=== PATIENT | female | born 1995 | race Caucasian/White ===

== ENCOUNTER 2022-05-13 16:30 | Observation (INO) | payer MEDICARE ==
[~2022-05-13] VITALS: Ht 152.4 cm; Wt 71.7 kg
== END 2022-05-13 18:45 | disposition home or self-care (01) ==
LOC: 8 EST LDRP 16:30
PROVIDERS: ADMIT Obstetrics & Gynecology; ATTEND Obstetrics & Gynecology
DX: O36.8130 Decreased fetal movements, third trimester, not applicable or unspecified (principal); O12.03 Gestational edema, third trimester; Z3A.35 35 weeks gestation of pregnancy
CPT/HCPCS: 59025; 76805; 76818; 93971; G0378; 99281; G0379

== ENCOUNTER 2022-06-03 07:33 | Observation (INO) | payer MEDICARE ==
[~2022-06-03] VITALS: Ht 152.4 cm; Wt 74.8 kg
[2022-06-03] MEDS ORDERED: PNV1TABL50 MT (11:29)
== END 2022-06-03 11:30 | disposition home or self-care (01) ==
LOC: 8 EST A/PP 07:33
PROVIDERS: ADMIT Obstetrics & Gynecology; ATTEND Obstetrics & Gynecology
DX: O26.613 Liver and biliary tract disorders in pregnancy, third trimester (principal); K83.1 Obstruction of bile duct; O26.893 Other specified pregnancy related conditions, third trimester; L29.9 Pruritus, unspecified; Z3A.38 38 weeks gestation of pregnancy
CPT/HCPCS: 59025; 76805; 76818; G0378; 99281

== ENCOUNTER 2022-06-05 08:49 | Observation (INO) | payer MEDICARE ==
[~2022-06-05 08:49] MED LIST: PNV1TABL50 MT
== END 2022-06-05 10:30 | disposition home or self-care (01) ==
LOC: 8 EST A/PP 08:49
PROVIDERS: ADMIT Obstetrics & Gynecology; ATTEND Obstetrics & Gynecology
DX: O26.613 Liver and biliary tract disorders in pregnancy, third trimester (principal); K83.1 Obstruction of bile duct; O88.119 Amniotic fluid embolism in pregnancy, unspecified trimester; Z3A.38 38 weeks gestation of pregnancy
CPT/HCPCS: 76815; 76818; 99281; G0378

== ENCOUNTER 2022-06-08 09:01 | Inpatient (IN) | payer MEDICARE ==
[~2022-06-08] VITALS: Ht 152.4 cm; Wt 74.8 kg
[2022-06-08] MEDS ORDERED: OXYTOCIN 30 UNITS/500ML NS PMX 500 ML IV SCH (10:15)
[2022-06-08] MEDS ORDERED: METHYLERGONOVINE MALEATE 0.2 MG/ML IM PRN (10:15)
[2022-06-08] MEDS ORDERED: CARBOPROST TROMETHAMINE 250 MCG/ML AMPUL IM PRN (10:15)
[2022-06-08] MEDS ORDERED: NALOXONE HCL 0.4 MG/ML 1ML VIAL IM PRN (10:15)
[2022-06-08] MEDS ORDERED: MISOPROSTOL 100MCG TABLET VG SCH (10:15)
[2022-06-08] MEDS ORDERED: BUTORPHANOL TARTRATE 2 MG/ML VIAL IV PRN (10:15)
[2022-06-08] MEDS ORDERED: LIDOCAINE HCL 1% 20ML VIAL (Pyxis) INJ INFIL SCH (10:15)
[2022-06-08] MEDS: LACTATED RINGERS 1,000 ML IV SCH (10:51)
[2022-06-08] MEDS ORDERED: URSO300C4 PO (11:24)
[2022-06-08 11:32] LABS: BASOPHILS % 0.1 % (0.0-2.0); EOSINOPHILS % 0.5 % (0.0-5.0); HEMATOCRIT. 34.3 % (36.0-48.0); HEMOGLOBIN. 11.6 g/dL (12.0-16.0); LYMPHOCYTES % 19.3 % (20.0-50.0); MEAN CORPUSCULAR HEMOGLOBIN 27.5 pg (28.0-32.0); MEAN CORPUSCULAR VOLUME 81.2 fL (81.0-99.0); MEAN PLATELET VOLUME 7.7 fl (7.4-10.4); MONOCYTES % 4.1 % (2.0-8.0); PLATELET 437 x1000/uL (130-400); RED BLOOD CELL COUNT 4.23 mill/uL (4.2-5.4); RED CELL DISTRIBUTION WIDTH 15.8 % (11.6-14.6)
[2022-06-08] MEDS: MISOPROSTOL 100MCG TABLET VG PRN (11:39)
[2022-06-08 11:51] LABS: INR 0.9; PARTIAL THROMBOPLASTIN TIME 27.3 sec (23.4-31.0); PROTHROMBIN TIME 9.8 sec (9.6-11.0)
[2022-06-08 12:08] LABS: CLARITY URINE CLEAR (CLEAR); COLOR URINE YELLOW (YELLOW); KETONES URINE NEGATIVE (NEGATIVE); LEUKOCYTE ESTERASE URINE 1+ (NEGATIVE); NITRITE URINE NEGATIVE (NEGATIVE); OCCULT BLOOD URINE NEGATIVE (NEGATIVE); PROTEIN URINE NEGATIVE (NEGATIVE); SPECIFIC GRAVITY URINE 1.018 (1.005-1.030); UROBILINOGEN URINE 0.2 E.U./dL (0.2-1.0)
[2022-06-08 12:53] LABS: HEPATITIS B SURFACE ANTIGEN NEGATIVE
[2022-06-08] MEDS ORDERED: PENICILLIN G POTASSIUM 5 MMU in DEXT 5% WATER 100 ML IV SCH (13:00)
[2022-06-08 13:03] LABS: *AMPHETAMINES SCREEN URINE NEGATIVE (NEGATIVE); *BARBITURATES SCREEN URINE NEGATIVE (NEGATIVE); *BENZODIAZEPINES SCREEN URINE NEGATIVE (NEGATIVE); *COCAINE SCREEN URINE NEGATIVE (NEGATIVE); CANNABINOID URINE SCREEN NEGATIVE (NEGATIVE); METHADONE URINE SCREEN NEGATIVE (NEGATIVE); OPIATES URINE SCREEN NEGATIVE (NEGATIVE); PHENCYCLIDINE URINE SCREEN NEGATIVE (NEGATIVE)
[2022-06-08] MEDS: PENICILLIN G POTASSIUM 2.5 MMU in DEXTROSE 5% WATER 50 ML IV SCH ×2 (19:17→22:54)
[2022-06-09] MEDS: LACTATED RINGERS 1,000 ML IV SCH ×4 (00:57→23:13)
[2022-06-09] MEDS: PENICILLIN G POTASSIUM 2.5 MMU in DEXTROSE 5% WATER 50 ML IV SCH ×6 (03:06→23:23)
[2022-06-09] MEDS: MISOPROSTOL 100MCG TABLET VG PRN ×2 (04:07→09:29)
[2022-06-09] MEDS ORDERED: BUTORPHANOL TARTRATE 2 MG/ML VIAL IM PRN (17:45)
[2022-06-09] MEDS ORDERED: TERBUTALINE SULFATE 1MG/ML VIAL SUBCUT NR (18:15)
[2022-06-09] MEDS ORDERED: ROPIVACAINE HCL/PF EPIDURAL 200 ML EPI ONE (22:13)
[2022-06-09] MEDS ORDERED: ROPIVACAINE HCL/PF EPIDURAL 200 ML EPI SCH (22:30)
[2022-06-10] MEDS: PENICILLIN G POTASSIUM 2.5 MMU in DEXTROSE 5% WATER 50 ML IV SCH (03:19)
[2022-06-10] MEDS ORDERED: GLYCERIN/WITCH HAZEL LEAF MEDICATED PAD TOP PRN (05:45)
[2022-06-10] MEDS ORDERED: BENZOCAINE/LANOLIN/ALOE VERA SPRAY TOP PRN (05:45)
[2022-06-10] MEDS ORDERED: BISACODYL 10MG SUPP PR PRN (05:45)
[2022-06-10] MEDS ORDERED: HEMORRHOIDAL SUPP PR PRN (05:45)
[2022-06-10] MEDS ORDERED: DIPHENHYDRAMINE 25MG CAPSULE PO PRN (05:45)
[2022-06-10] MEDS ORDERED: OXYTOCIN 30 UNITS/500ML NS PMX 500 ML IV SCH (05:45)
[2022-06-10] MEDS ORDERED: IBUPROFEN 400MG TABLET PO PRN (05:45)
[2022-06-10] MEDS ORDERED: LANOLIN OINT 7GM TUBE TOP PRN (05:45)
[2022-06-10] MEDS ORDERED: ACETAMINOPHEN WITH CODEINE 300/30MG TABLET PO PRN (05:45)
[2022-06-10] MEDS ORDERED: METHYLERGONOVINE MALEATE 0.2 MG/ML IM PRN (05:45)
[2022-06-10 07:10] VITALS: BP 102/63
[2022-06-10] MEDS: IBUPROFEN 800MG TABLET PO PRN ×2 (07:53→16:21)
[2022-06-10 08:00] VITALS: BP 106/68
[2022-06-10 16:00] VITALS: BP 100/59
[2022-06-10] MEDS: MAGNESIUM/ALUMINUM HYDROXIDE/SIMETHICONE 30ML UDC PO SCH ×2 (16:21→20:21)
[2022-06-10] MEDS: SIMETHICONE 80MG TABLET CHEW PO SCH ×2 (16:22→20:21)
[2022-06-10] MEDS: PRENATAL VIT/FE FUMARATE/FA TABLET PO SCH (16:22)
[2022-06-10 20:00] VITALS: BP 95/53
[2022-06-10] MEDS ORDERED: DOCUSATE SODIUM 100MG CAPSULE PO SCH (21:00)
[2022-06-11 04:00] VITALS: BP 94/55
[2022-06-11] MEDS ORDERED: FERROUS SULFATE 325MG TABLET PO SCH (07:30)
[2022-06-11 07:53] LABS: BASOPHILS % 0.2 % (0.0-2.0); EOSINOPHILS % 0.3 % (0.0-5.0); HEMATOCRIT. 27.5 % (36.0-48.0); HEMOGLOBIN. 9.1 g/dL (12.0-16.0); LYMPHOCYTES % 15.7 % (20.0-50.0); MEAN CORPUSCULAR VOLUME 81.4 fL (81.0-99.0); MEAN PLATELET VOLUME 7.3 fl (7.4-10.4); MONOCYTES % 3.2 % (2.0-8.0); NEUTROPHILS % 80.6 % (40.0-76.0); PLATELET 381 x1000/uL (130-400); RED BLOOD CELL COUNT 3.38 mill/uL (4.2-5.4); RED CELL DISTRIBUTION WIDTH 16.4 % (11.6-14.6)
[2022-06-11 09:00] VITALS: BP 100/63
[2022-06-11] MEDS: SIMETHICONE 80MG TABLET CHEW PO SCH (09:00)
[2022-06-11] MEDS: MAGNESIUM/ALUMINUM HYDROXIDE/SIMETHICONE 30ML UDC PO SCH (09:00)
[2022-06-11] MEDS: PRENATAL VIT/FE FUMARATE/FA TABLET PO SCH (09:00)
[2022-06-11] MEDS: IBUPROFEN 800MG TABLET PO PRN (09:04)
== END 2022-06-11 12:00 | disposition home or self-care (01) | DRG 560 ==
LOC: OBSVTOIN 09:01 → 8 EST LDRP 09:01 → 8EST 06-10 07:43
PROVIDERS: ADMIT Obstetrics & Gynecology; ATTEND Obstetrics & Gynecology
PROC: 10E0XZZ Delivery of Products of Conception, External Approach (ICD-10-PCS; principal; 2022-06-10)
PROC: 0W8NXZZ Division of Female Perineum, External Approach (ICD-10-PCS; 2022-06-10)
PROC: 3E0R3BZ Introduction of Anesthetic Agent into Spinal Canal, Percutaneous Approach (ICD-10-PCS; 2022-06-10)
PROC: 00HU33Z Insertion of Infusion Device into Spinal Canal, Percutaneous Approach (ICD-10-PCS; 2022-06-10)
DX: O26.62 Liver and biliary tract disorders in childbirth (principal); Z37.0 Single live birth; K83.1 Obstruction of bile duct; Z20.822 Contact with and (suspected) exposure to COVID-19; O99.214 Obesity complicating childbirth; O99.824 Streptococcus B carrier state complicating childbirth; Z3A.39 39 weeks gestation of pregnancy; O98.52 Other viral diseases complicating childbirth
CPT/HCPCS: 36415; 80305; 81003; 85025; 86592; 86703; 86762; 86850; 86900; 87340; 87426; 99281; J0595; J2540; J2795; J3490; J7060; J7120; A4315; J2590